=== PATIENT | female | born 1960 | race Caucasian/White ===

== ENCOUNTER 2018-03-02 04:39 | Inpatient (IN) ==
[2018-03-02] MEDS ORDERED: ONDANSETRON HCL/PF 2 MG/ML VIAL IV ONE (05:06)
[2018-03-02] MEDS ORDERED: BUTORPHANOL TARTRATE 2 MG/ML VIAL IV ONE (05:07)
[2018-03-02] MEDS ORDERED: BUTORPHANOL TARTRATE 2 MG/ML VIAL ONE (05:17)
[2018-03-02] MEDS ORDERED: ONDANSETRON HCL/PF 2 MG/ML VIAL ONE (05:17)
--- NOTE | 2018-03-02 05:17 | ERNOTE ---
Abdominal HPI - General Chief Complaint: Abdominal Pain Time Seen by Provider: 03/02/18 05:00 Source: patient Exam Limitations: no limitations - Immun/Allergies/Home Medications Immunizatons: IMMUNIZATION HX Immunizations Up to Date Yes History of Influenza Vaccine Yes Allergies/Adverse Reactions: Allergies No Known Allergies Allergy (Unverified 03/02/18 04:49) Home Medications: HOME MEDICATIONS NK [No Home Medication] 03/02/18 [Last Taken Unknown] - History of Present Illness Narrative: Pt states that she has had crampy abdominal pain that worsened this morning and is more LLQ but bilateral lower quads. Timing: getting worse Quality: moderate, cramping Modifying Factors - (Improves): Present: analgesics - helped only a little Associated Symptoms: Present: denies symptoms Review of Systems - Review of Systems Constitutional: Present: fever - does not have thermometer at home but felt warm , chills Respiratory: Absent: shortness of breath Cardiology: Absent: chest pain Gastrointestinal/Abdominal: Present: See HPI, nausea Genitourinary: Present: frequency, dysuria Musculoskeletal: Absent: back pain, muscle pain Skin: Absent: rash Endocrine: Present: excessive sweating - Patient's Past Medical History Patient History - Medical: No pertinent hx Patient History - Cardiac/Respiratory: No pertinent hx Patient History - Cancer: No Hx of Cancer Patient History - Surgical Procedures: , D & C Patient History - Other: None - Social History Living Situations: spouse Psych History: No pertinent hx Smoking Status: Never smoker Have you smoked in the past 12 months: No Do you dip or chew tobacco: No Alcohol Use: occasionally Drug Use: none - Immunizations Immunizations Up to Date: Yes History of Influenza Vaccine: Yes Physical Exam - Physical Exam General Appearance: Present: wd/wn, alert, mild distress Head Exam: Present: normal inspection, no evidence of injury Neck: Present: normal inspection, nontender, supple Respiratory: Present: no respiratory distress, normal breath sounds, lungs clear Cardiovascular/Chest: Present: regular rate, rhythm, no murmur, normal peripheral pulses Gastrointestinal/Abdominal: Present: normal bowel sounds, tenderness - LLQ. Absent: distended, guarding, rebound Back Exam: Present: normal inspection, normal range of motion, no CVA tenderness , no vertebral tenderness Extremity Exam: Present: normal inspection, normal range of motion, no edema Neurological Exam: Present: alert, oriented, normal mood/affect Skin Exam: Present: normal color, warm/dry Lymphatic Exam: Present: no adenopathy ED Progress - Results and Orders Patient's Lab Results:: I have reviewed the patient's lab results. Results and Orders: Laboratory Tests 03/02/18 03/02/18 03/02/18 05:15 05:15 06:10 WBC 14.8 H Hgb 12.3 L Hct 37.2 Plt Count 227 Neutrophils % 82.9 H Sodium 140 Potassium 3.9 Chloride 106 Carbon Dioxide 25.3 Anion Gap 12.6 BUN 11 Creatinine 0.91 Est GFR (Non-Af Amer) 67 Random Glucose 123 H Calcium 9.1 Total Bilirubin 0.9 AST 15 ALT 20 Alkaline Phosphatase 85 Total Protein 7.5 Albumin 3.6 Urine Color Yellow Urine Appearance Clear Urine pH 5.5 Ur Specific [place] >=1.030 Urine Protein Negative Urine Glucose (UA) Negative Urine Ketones 5 Urine Blood 250 H Urine Nitrate Negative Urine Bilirubin Negative Urine Urobilinogen Normal Ur Leukocyte Esterase Negative Urine RBC 5-10 H Urine WBC Trace H Ur Epithelial Cells None seen Urine Bacteria Trace Urine Culture Comments No culture indicated - Vital Signs Patient's Vital Signs:: I have reviewed the patient's vital signs. Vital Signs: Vital Signs 03/02/18 04:44 Temperature 36.8 C Pulse Rate 84 Respiratory 14 Rate Blood Pressure 143/54 O2 Sat by Pulse 100 Oximetry - CT/Ultrasound CT/Ultrasound Narrative: CT abd/ pelvis: IMPRESSION: 1. CT findings are most compatible with acute sigmoid diverticulitis or colitis. There is a tiny extraluminal gas within the sigmoid colonic mesentery which could represent contained microperforation. Underlying colonic mass cannot be entirely excluded and therefore consider further evaluation of the colon when the patient's acute symptoms have resolved. 2. Inflammatory stranding along the left side of the pelvis/ retroperitoneum. There is no definable pelvic or intra-abdominal fluid collection/abscess. 3. No evidence for intrarenal calcifications, or signs of obstructive uropathy. Additional comments and limitations are as above. Ordering provider Dr. Donovan was informed regarding the above results by telephone on 03/02/2018 7 :48 AM. Electronically signed by Veronica Coreas M.D.. - Progress/Reassessment Chief Complaint: Abdominal Pain Progress:: Improved Progress Note-Subjective: 03/02/18 08:[address] Hart she agrees with observation admit. Departure Clinical Impression: Diverticulitis large intestine Qualifiers: Diverticulitis bleeding: unspecified bleeding status Diverticulitis complication: with perforation Qualified Code(s): K57.20 - Diverticulitis of large intestine with perforation and abscess without bleeding - Departure Disposition: Still a patient Condition: Fair
[2018-03-02 05:28] LABS: Hematocrit 37.2 % (37.0-47.0); Hemoglobin 12.3 gm/dL (12.5-16.0); Mean Cell Volume 93.5 fl (78-100); Mean Corpuscular Hemoglobin 30.9 pg (27-31); Mean Corpuscular Hgb Conc 33.1 g/dl (32-36); Mean Platelet Volume 9.6 fl (6.0-9.5); Neutrophil # 12.3 K/mm3 (1.3-6.0); Neutrophil % 82.9 % (42-75.0); Platelet Count 227 K/mm3 (150-450); Red Blood Count 3.98 M/mm3 (4.2-5.4); Red Cell Distribution Width 11.8 % (11.5-14.0); White Blood Count 14.8 K/mm3 (4.0-10.5)
[2018-03-02 05:37] LABS: Albumin * 3.6 gm/dl (3.4-5.0); Anion Gap 12.6 mmol/L (6.8-13.8); BUN/Creatinine Ratio 12.1 (9.0-21.6); Bilirubin, Total 0.9 mg/dL (0.0-1.1); Ca. Corrected For Albumin 9.1 mg/dL (8.4-10.2); Calcium * 9.1 mg/dL (7.9-10.9); Carbon Dioxide 25.3 mmol/L (24-32.6); Potassium 3.9 mmol/L (3.4-4.6); Total Protein 7.5 gm/dL (6.2-8.2)
[2018-03-02 06:12] LABS: Urine Bilirubin Negative (NEGATIVE); Urine Blood 250 /ul (NEGATIVE); Urine Ketone 5 mg/dL (NEGATIVE); Urine Nitrite Negative (NEGATIVE); Urine Protein Negative (NEGATIVE); Urine Specific Gravity >=1.030 SP.GR. (1.005-1.010); Urine Urobilinogen Normal (NORMAL); Urine pH 5.5 pH (5.0-7.0)
[2018-03-02 06:20] LABS: Urine Appearance Clear (CLEAR); Urine Bacteria TRACE; Urine Color Yellow; Urine WBC TRACE /hpf (0-5)
[2018-03-02] MEDS: PIPERACILLIN SODIUM/TAZOBACTAM 3.375 GM in DEXTROSE 5 % IN WATER 100 ML IV SCH ×6 (09:02→23:47)
--- NOTE | 2018-03-02 09:06 | HP ---
Chief Complaint - Chief Complaint Date of Service: 03/02/18 Time of Service: 09:06 Chief Complaint: Abdominal pain since last night. History of Present Illness: Patient is a 57-year-old WF with H/O diverticulosis developed sudden onset of severe abdominal pain in the LLQ at approximately 10 PM on 02/03 05/22. The pain gradually worsened [ graded as 8/10] which prompted her to come to the ER Patient states she had an episode of nausea/vomiting 3 approximately 2 weeks ago but she felt it was a stomach flu. She had generalized abdominal discomfort with it. Labs in ER: WBC 14.8, lactic acid 1.4, sp. gr Urine 1.030. CT abdomen/pelvis W/O : Acute sigmoid diverticulitis/colitis w/ inflammatory stranding along the left side of the pelvis/retroperitoneum. No definable pelvic/intra-abdominal fluid collection/abscess. Tiny extraluminal gas within the sigmoid colon mesentery which could represent contained microperforation. Further evaluation of the colon should be done when the patient's acute symptoms have resolved to rule out mass. Patient was started on Zosyn[piperacillin and tazobactam], IV fluids and kept NPO. - Patient's Past Medical History Patient History - Medical: No pertinent hx Patient History - Cardiac/Respiratory: No pertinent hx Patient History - Cancer: No Hx of Cancer Patient History - Surgical Procedures: , D & C Patient History - Other: None - Family History Mother Family History - Medical: No pertinent hx Family History - Cardiac/Respiratory: Hypertension Family History - Cancer: Breast Father Family History - Cardiac/Respiratory: Hypertension Family History - Cancer: Other - Social History Living Situations: spouse Psych History: No pertinent hx Smoking Status: Never smoker Have you smoked in the past 12 months: No Do you dip or chew tobacco: No Alcohol Use: occasionally Drug Use: none - Immunizations Immunizations Up to Date: Yes History of Influenza Vaccine: Yes Review Of Systems (GEN) - Review of Systems Generalized/Overall Review: Absent: Weakness, Chills, Fever EENTM: Present: Other - denies allergies, sinus drainage Respiratory: Absent: Cough, Shortness of Breath Cardiac: Absent: Chest Pain, Edema, Palpitations Abdominal: Present: Nausea, Vomiting - "stomach flu" 2 weeks ago, Abdominal Pain - x 1day Genitourinary: Absent: Burning, Urgency Musculoskeletal: Absent: Joint Pain, Back Pain Neurological: Absent: Headache, Anxiety, Depressed Skin: Absent: Dryness Endocrine: Absent: Intolerance to Cold, Intolerance to Heat Immunizations: IMMUNIZATION HX Immunizations Up to Date Yes History of Influenza Vaccine Yes Allergies/Adverse Reactions: Allergies Allergy/AdvReac Type Severity Reaction Status Date / Time No Known Allergies Allergy Unverified 03/05/18 14:33 Home Medications: HOME MEDICATIONS Ciprofloxacin HCl 500 mg PO BID #20 tablet 03/06/18 [Last Taken Unknown] metroNIDAZOLE [Flagyl] 500 mg PO QID #40 tab 03/06/18 [Last Taken Unknown] Exam - Exam Vital Signs: Vital Signs - Last Taken Temp 36.6 C 03/02/18 08:00 Pulse 105 H 03/02/18 08:00 Resp 15 03/02/18 08:00 BP 124/66 03/02/18 08:00 Pulse Ox 97 03/02/18 08:00 Constitutional: Present: Alert, Oriented x3, Cooperative, Middle aged ENT Exam: Present: dry mucous membranes Eye Exam: bilateral eye: normal inspection, PERRL Neck: Present: normal inspection, trachea midline Respiratory: Present: normal breath sounds, no accessory muscle use Cardiovascular/Chest: Present: regular rate, rhythm. Absent: tachycardia Peripheral Pulses: carotid (R): 2+, carotid (L): 2+ Abdomen: Present: Normal bowel sounds, soft, hypoactive - mild LLQ tenderness Extremity: Present: normal range of motion, non-tender, normal inspection, no pedal edema Skin Exam: Present: warm/dry, pallor Appearance: Present: appropriate appearance, appropriate insight Eye contact: Present: good eye contact, normal speech Diagnostic Studies: Laboratory Tests 03/02/18 05:15 WBC 14.8 H Hgb 12.3 L Hct 37.2 Plt Count 227 Neutrophils % 82.9 H Lymphocytes % 9.2 L 03/02/18 05:15 Plasma Sodium 140 Potassium 3.9 Chloride 106 Carbon Dioxide 25.3 BUN 11 Creatinine 0.91 Est GFR (Non-Af Amer) 67 Random Glucose 123 H Calcium Adj for Albumin 9.1 Total Bilirubin 0.9 AST 15 Total Protein 7.5 Albumin 3.6 03/02/18 05:15 Lactic Acid, Venous 1.4 Assessment/Plan - Narrative Narrative: 1. DIVERTICULITIS WITH CONTAINED MICROPERFORATION: Start patient on piperacillin/tazobactam 3.375 mg IV every 8 hours. Keep patient NPO. Ondansetron 4 mg IV as needed for nausea. Morphine sulfate 2-4 mg IV as needed for pain. Repeat CT of the abdomen in 3-5 days follow up. Discussed with patient regarding TPN if NPO longer 7-10 days. IV fluids in the form of D5NS at 150 mL an hour. Repeat CBC and CMP on 03/03/18. Dr. Reed on consult. Due to the above the patient will require at least TWO day- midnight stay. 2. DVT PROPHYLAXIS: Patient is ambulatory. Has SCDs on. Discuss with Dr. Reed regarding Lovenox. 3. CODE STATUS: Full code. - Assessment/Plan (1) diverticulitis with microperforation Problem: Acute
[2018-03-02] MEDS: DEXTROSE 5%-NORMAL SALINE 1,000 ML IV PRN ×3 (09:07→23:44)
[2018-03-02] MEDS ORDERED: ENOXAPARIN SODIUM 40 MG/0.4 ML SYRG SC SCH (09:30)
[2018-03-02] MEDS: SACCHAROMYCES BOULARDII 250 MG CAPSULE PO SCH ×2 (11:08→21:53)
[2018-03-02] MEDS ORDERED: MORPHINE SULFATE 4 MG/ML SYRG IV PRN (11:40)
[2018-03-02] MEDS: MORPHINE SULFATE 2 MG/ML DISP.SYRIN IV PRN (12:03)
[2018-03-02] MEDS: ONDANSETRON HCL/PF 2 MG/ML VIAL IV PRN (12:04)
--- NOTE | 2018-03-02 15:35 | CONS ---
[facility] - General Date of Service: 03/02/18 Source: patient, RN/MD, old records Exam Limitations: no limitations - History of Present Illness Initial Comments: Yesterday afternoon she felt tired and anorectic. Then between 10 PM and midnight she developed the sudden onset of severe left lower quadrant abdominal pain. It hurt to move. She had some difficulty with her "usual bowels" in that it was less in amount and smaller. The pain continued and she presented to the emergency room for evaluation. She was found to have left lower quadrant tenderness, elevated WBC, and CT scan evidence of sigmoid diverticulitis with possible localized perforation and stranding. She has been started on IV Zosyn and has received pain medication. She states she feels much better and her pain is down to a 2/10 and she can move much more easily. She is not hungry but she is thirsty. She generally moves her bowels a little bit every day after Tea in the morning. They are fairly soft In retrospect, 2 weeks ago she had an episode where she felt very tired and weak and somewhat chilled. She thought she had the stomach flu and vomited at least 3 times. She had some generalized abdominal pain she was not sure if this was from vomiting or not. She was not febrile and the episode lasted for 1 day. She has never had anything else like this before. Timing/Duration: other - Began yesterday afternoon, got worse last night Modifying Factors - (Worsens): Reports: movement Modifying Factors - (Improves): Reports: immobilization, medication Associated Symptoms: loss of appetite, nausea, vomiting - Abdominal pain, feeling chilled, other Allergies/Adverse Reactions: Allergies No Known Allergies Allergy (Unverified 03/02/18 09:21) Home Medications: Home Medications Medication Instructions Recorded Last Taken NK [No Home Medication] 03/02/18 Unknown - Patient's Past Medical History Patient History - Medical: No pertinent hx Patient History - Cardiac/Respiratory: No pertinent hx Patient History - Cancer: No Hx of Cancer Patient History - Surgical Procedures: , D & C, Other - Colonoscopy with removal of small hyperplastic polyp. Sigmoid diverticulosis was noted Patient History - Other: None LMP (females 10-50): Menopausal - Family History Mother Family History - Medical: No pertinent hx Family History - Cardiac/Respiratory: Hypertension Family History - Cancer: Breast Father Family History - Cardiac/Respiratory: Hypertension Family History - Cancer: Other - Social History Living Situations: spouse Abuse History: No History of abuse Psych History: No pertinent hx Smoking Status: Never smoker Have you smoked in the past 12 months: No Do you dip or chew tobacco: No Patient requests Smoking Cessation Consult: No Initiate information on Smoking Cessation: No Alcohol Use: occasionally Drug Use: none - Immunizations Immunizations Up to Date: Yes History of Influenza Vaccine: Yes Procedures ENDOSC POLYPECTOMY OF LG INTEST (04/29/11) Medications - Medications Current Medications: Current Medications Enoxaparin Sodium (Lovenox) 40 mg SC Q24H CARINA Stop: 04/01/18 09:31 Last Admin: 03/02/18 10:29 Dose: Not Given Dextrose/Sodium Chloride (Dextrose 5%-0.9% Ns) 1,000 mls @ 150 mls/hr IV .Q6H40M PRN PRN Reason: HYDRATION Stop: 04/01/18 08:25 Last Admin: 03/02/18 09:07 Dose: 125 mls/hr Piperacillin Sod/Tazobactam (Sod 3.375 gm/ Dextrose/Water) 100 mls @ 200 mls/ hr IV Q8H CARINA PRN Reason: Protocol Stop: 04/01/18 08:31 Last Infusion: 03/02/18 09:32 Dose: Infused Morphine Sulfate (Morphine Sulfate) 2 mg IV Q4H PRN PRN Reason: Moderate Pain (pain scale 4-6) Stop: 04/01/18 11:40 Last Admin: 03/02/18 12:03 Dose: 2 mg Ondansetron HCl (Zofran) 4 mg IV Q6H PRN PRN Reason: Nausea And Vomiting Stop: 04/01/18 11:39 Last Admin: 03/02/18 12:04 Dose: 4 mg Saccharomyces Boulardii (Florastor) 250 mg PO BID CARINA Stop: 04/01/18 09:01 Last Admin: 03/02/18 11:08 Dose: 250 mg Review of Systems - Review of Systems Generalized/Overall Review: Present: Fatigue. Absent: Chills, Fever EENTM: Present: No Symptoms Reported Respiratory: Present: No Symptoms Reported Cardiac: Present: No Symptoms Reported Abdominal: Present: Other - Left lower quadrant pain and tenderness. Markedly improved since last night Musculoskeletal: Present: No Symptoms Reported Neurological: Present: No Symptoms Reported Skin: Present: No Symptoms Reported Misc: All systems neg except as marked Physical Examination - Exam Vital Signs: Vital Signs - Last Taken Temp 36.8 C 03/02/18 09:10 Pulse 87 03/02/18 09:10 Resp 16 03/02/18 09:10 BP 108/57 03/02/18 09:10 Pulse Ox 97 03/02/18 09:10 Constitutional: Present: Alert, Oriented x3, Cooperative, Mild distress ENT Exam: Present: normal ENT inspection Eye Exam: bilateral eye: normal inspection Neck: Present: full range of motion, normal inspection Breasts: Present: Exam deferred Respiratory: Present: no respiratory distress Cardiovascular/Chest: Present: regular rate, rhythm Abdomen: Present: other - She has point direct tenderness in the left lower quadrant and some additional report of tenderness across the lower abdomen as well. She can cough without discomfort. /Rectal: Present: Exam deferred Extremity: Present: normal inspection Skin Exam: Present: normal color Neurologic: Present: director of dance II-XII nml as tested, no motor/sensory deficits Appearance: Present: appropriate appearance, appropriate insight, neat Eye contact: Present: cooperative, good eye contact, normal speech Thoughts: Present: normal thought pattern - Results and Findings: Lab/Microbiology results last 24 hrs: CT scan shows thickening in the sigmoid colon with adjacent stranding and possible microperforation. White blood cell count is elevated at 14,000 Urine is concentrated but clear - Assessments/Findings (1) Diverticulitis large intestine Diagnosis(s): The CT scan shows thickening and stranding adjacent to the sigmoid colon with a possible small microperforation. There is no katia abscess or free air. RECOMMEND: Continued n.p.o. status with exception of ice chips. IV antibiotic which has already been begun. Serial exams with repeat CBC tomorrow morning. Would recommend continuing n.p.o. status until she is pain-free. If she tolerates an advanced diet she can been transitioned to p.o. antibiotics to cover both aerobes and anaerobes which should be then continued for at least a total of 14 days. A pamphlet on diverticular disease was reviewed with the patient and given to her, the case has been discussed with Dr. Hart, and I will continue to follow the patient Problem: Acute Qualifiers: Diverticulitis bleeding: unspecified bleeding status Diverticulitis complication: with perforation Qualified Code(s): K57.20 - Diverticulitis of large intestine with perforation and abscess without bleeding
[2018-03-03] MEDS: PIPERACILLIN SODIUM/TAZOBACTAM 3.375 GM in DEXTROSE 5 % IN WATER 100 ML IV SCH ×6 (00:05→16:43)
[2018-03-03] MEDS: MORPHINE SULFATE 2 MG/ML DISP.SYRIN IV PRN (02:15)
[2018-03-03 05:34] LABS: Hematocrit 29.8 % (37.0-47.0); Hemoglobin 9.7 gm/dL (12.5-16.0); Mean Cell Volume 96.1 fl (78-100); Mean Corpuscular Hemoglobin 31.3 pg (27-31); Mean Corpuscular Hgb Conc 32.6 g/dl (32-36); Mean Platelet Volume 9.9 fl (6.0-9.5); Neutrophil % 71.9 % (42-75.0); Platelet Count 168 K/mm3 (150-450); Red Cell Distribution Width 12.1 % (11.5-14.0); White Blood Count 8.4 K/mm3 (4.0-10.5)
--- NOTE | 2018-03-03 05:34 | PN ---
Subjective - Date and Time Seen Date: 03/03/18 Time: 06:14 Subjective Narrative: Pt seen this am. States abdominal pain is improved from yesterday, but dull aching pain persist on lower abdomen. No n/v. No other acute events overnight. Objective - Vitals Vitals: Last Vital Signs Temp 37.4 C 03/03/18 02:00 Pulse 80 03/03/18 02:00 Resp 16 03/03/18 02:00 BP 105/55 03/03/18 02:00 Pulse Ox 93 03/03/18 02:00 - Exam Constitutional: Present: Alert, Oriented x3, Cooperative, No distress ENT Exam: Present: normal ENT inspection Neck: Present: non-tender, full range of motion, supple Breasts: Present: Exam deferred Respiratory: Present: chest non-tender, lungs clear, normal breath sounds Cardiovascular/Chest: Present: normal peripheral pulses, regular rate, rhythm, no chest tenderness, no edema Abdomen: Present: Normal bowel sounds, soft, tender, guarding - lower abdomen /Rectal: Present: Exam deferred Extremity: Present: normal range of motion, non-tender, normal inspection, no pedal edema Skin Exam: Present: warm/dry, no cyanosis Lymphatic: Present: no adenopathy Neurologic: Present: alert, normal mood/affect, oriented x 3 Appearance: Present: appropriate appearance, appropriate insight Eye contact: Present: cooperative, good eye contact, normal speech Thoughts: Present: normal thought pattern, no apparent hallucination Assessment/Plan - Problems/Diagnosis (1) diverticulitis with microperforation Problem: Acute Narrative: Pt started on piperacillin/tazobactam 3.375 mg IV every 8 hours. Provide supportive cares with: antiemetics, analgesics, Keep patient NPO and continue with IVF hydration until pt can tolerate diet/clear liquids. May show an improvement after 2-3 days and if no improvment, prompt imaging will be needed to look for complications such as abscess or perforation that may require further interventions. CBC & CMP labs in am. Surgery consulted and following. Will need 10-14 days of Antibitoics targeting aerobes gram -ve and anaerobes. Will need colonoscopy 6-8 weeks after symptoms resolve to rule out malignancy
[2018-03-03] MEDS: DEXTROSE 5%-NORMAL SALINE 1,000 ML IV PRN ×3 (06:38→20:40)
[2018-03-03] MEDS: SACCHAROMYCES BOULARDII 250 MG CAPSULE PO SCH ×2 (09:24→20:13)
[2018-03-03] MEDS ORDERED: MORPHINE SULFATE 4 MG/ML SYRG IV PRN (10:00)
[2018-03-03] MEDS: ONDANSETRON HCL/PF 2 MG/ML VIAL IV PRN (21:28)
[2018-03-04] MEDS: PIPERACILLIN SODIUM/TAZOBACTAM 3.375 GM in DEXTROSE 5 % IN WATER 100 ML IV SCH ×6 (00:30→17:29)
[2018-03-04] MEDS: DEXTROSE 5%-NORMAL SALINE 1,000 ML IV PRN ×3 (03:01→17:29)
[2018-03-04] MEDS: ONDANSETRON HCL/PF 2 MG/ML VIAL IV PRN (03:58)
[2018-03-04] MEDS: ACETAMINOPHEN 325 MG TABLET PO PRN ×3 (04:16→20:54)
--- NOTE | 2018-03-04 05:23 | PN ---
Subjective - Date and Time Seen Date: 03/04/18 Time: 05:22 Subjective Narrative: Pt seen this am. Abdominal pain feels much better today. Had headache overnight relieved by apap. No other acute events overnight. Objective - Vitals Vitals: Last Vital Signs Temp 36.6 C 03/04/18 03:05 Pulse 75 03/04/18 03:05 Resp 18 03/04/18 03:05 BP 117/63 03/04/18 03:05 Pulse Ox 95 03/04/18 03:05 - Abnormal Lab Findings Abnormal Lab Findings: Abnormal Lab Results 03/03/18 Range/Units 05:31 RBC 3.10 L (4.2-5.4) M/mm3 Hgb 9.7 L (12.5-16.0) gm/dL Hct 29.8 L (37.0-47.0) % MCH 31.3 H (27-31) pg MPV 9.9 H (6.0-9.5) fl Immature Gran % (Auto) 0.50 H (0.001-0.429) % Immature Gran # (Auto) 0.04 H (0.000-0.0310) K/mm3 Lymphocytes % 19.6 L (20-51) % - Exam Constitutional: Present: Alert, Oriented x3, Cooperative, No distress ENT Exam: Present: normal ENT inspection, hearing grossly normal Neck: Present: non-tender, full range of motion, supple Breasts: Present: Exam deferred Respiratory: Present: No rales, No wheezing Cardiovascular/Chest: Present: normal peripheral pulses, regular rate, rhythm, no chest tenderness Abdomen: Present: Normal bowel sounds, soft, nontender. Absent: guarding /Rectal: Present: Exam deferred Extremity: Present: no pedal edema Skin Exam: Present: warm/dry, no cyanosis Lymphatic: Present: no adenopathy Neurologic: Present: no motor/sensory deficits, alert, normal mood/affect Appearance: Present: appropriate appearance, appropriate insight Eye contact: Present: cooperative, good eye contact, normal speech Thoughts: Present: normal thought pattern, no apparent hallucination Assessment/Plan - Problems/Diagnosis (1) diverticulitis with microperforation Problem: Acute Narrative: Pt started on piperacillin/tazobactam 3.375 mg IV every 8 hours. Provide supportive cares with: antiemetics, analgesics, Keep patient NPO and continue with IVF hydration until pt can tolerate diet/clear liquids. May show an improvement after 2-3 days and if no improvment, prompt imaging will be needed to look for complications such as abscess or perforation that may require further interventions. CBC & CMP labs in am. Surgery consulted and following. Will need 10-14 days of Antibitoics targeting aerobes gram -ve and anaerobes. Will need colonoscopy 6-8 weeks after symptoms resolve to rule out malignancy
[2018-03-04 05:43] LABS: Hematocrit 30.1 % (37.0-47.0); Hemoglobin 9.8 gm/dL (12.5-16.0); Mean Cell Volume 95.6 fl (78-100); Mean Corpuscular Hemoglobin 31.1 pg (27-31); Mean Corpuscular Hgb Conc 32.6 g/dl (32-36); Mean Platelet Volume 10.1 fl (6.0-9.5); Neutrophil # 4.3 K/mm3 (1.3-6.0); Neutrophil % 74.4 % (42-75.0); Platelet Count 175 K/mm3 (150-450); Red Blood Count 3.15 M/mm3 (4.2-5.4); Red Cell Distribution Width 11.9 % (11.5-14.0); White Blood Count 5.7 K/mm3 (4.0-10.5)
[2018-03-04 05:51] LABS: Albumin * 2.6 gm/dl (3.4-5.0); Anion Gap 11.7 mmol/L (6.8-13.8); BUN/Creatinine Ratio 3.6 (9.0-21.6); Bilirubin, Total 0.6 mg/dL (0.0-1.1); Ca. Corrected For Albumin 9.3 mg/dL (8.4-10.2); Calcium * 8.5 mg/dL (7.9-10.9); Carbon Dioxide 24.9 mmol/L (24-32.6); Potassium 3.6 mmol/L (3.4-4.6); Total Protein 6.3 gm/dL (6.2-8.2)
--- NOTE | 2018-03-04 08:06 | PN ---
Dictated Progress Note - Date and Time Seen: Date: 03/04/18 Time: 08:04 - Progress Note Narrative: Vital Signs - Last Taken Temp 36.6 C 03/04/18 07:00 Pulse 72 03/04/18 07:00 Resp 16 03/04/18 07:00 BP 111/66 03/04/18 07:00 Pulse Ox 95 03/04/18 03:05 Abnormal/Pending Laboratory Last 24 HRS 03/04/18 03/04/18 05:33 05:33 RBC 3.15 L Hgb 9.8 L Hct 30.1 L MCH 31.1 H MPV 10.1 H Lymphocytes % 15.7 L Lymphocytes # 0.90 L Sodium 143 H Plasma Sodium 143 H Chloride 110 H BUN/Creatinine Ratio 3.6 L Random Glucose 127 H Albumin 2.6 L Culture 03/02/18 09:27 Blood Culture - Preliminary Blood NO GROWTH 24 HOURS She continues to feel better, but still with LLQ tenderness. Passing gas. She had headache last night--now 2/10 with Tylenol. WBC decreased. Na increased. Not hungry. Will start clear liquids
[2018-03-04] MEDS: SACCHAROMYCES BOULARDII 250 MG CAPSULE PO SCH ×2 (09:01→20:54)
[2018-03-05] MEDS: DEXTROSE 5%-NORMAL SALINE 1,000 ML IV PRN ×3 (00:13→13:57)
[2018-03-05] MEDS: PIPERACILLIN SODIUM/TAZOBACTAM 3.375 GM in DEXTROSE 5 % IN WATER 100 ML IV SCH ×8 (00:35→23:44)
--- NOTE | 2018-03-05 05:07 | PN ---
Subjective - Date and Time Seen Date: 03/05/18 Time: 05:01 Subjective Narrative: Pt seen this am. Says abdominal pain has significantly improved. Is tolerating clear liquid. No other acute events overnight. Objective - Vitals Vitals: Last Vital Signs Temp 36.7 C 03/04/18 23:00 Pulse 76 03/04/18 23:00 Resp 18 03/04/18 23:00 BP 128/74 03/04/18 23:00 Pulse Ox 92 03/04/18 23:00 - Abnormal Lab Findings Abnormal Lab Findings: Abnormal Lab Results 03/04/18 03/04/18 Range/Units 05:33 05:33 RBC 3.15 L (4.2-5.4) M/mm3 Hgb 9.8 L (12.5-16.0) gm/dL Hct 30.1 L (37.0-47.0) % MCH 31.1 H (27-31) pg MPV 10.1 H (6.0-9.5) fl Lymphocytes % 15.7 L (20-51) % Lymphocytes # 0.90 L (1.5-3.5) k/mm3 Sodium 143 H (132-142) mmol/L Plasma Sodium 143 H (130-142) mmol/L Chloride 110 H (97-106) mmol/L BUN/Creatinine Ratio 3.6 L (9.0-21.6) Random Glucose 127 H (70-110) mg/dL Albumin 2.6 L (3.4-5.0) gm/dl - Exam Constitutional: Present: Alert, Oriented x3, Cooperative, No distress ENT Exam: Present: normal ENT inspection, hearing grossly normal Neck: Present: non-tender, full range of motion, supple Respiratory: Present: chest non-tender, No rales, No wheezing Cardiovascular/Chest: Present: normal peripheral pulses, regular rate, rhythm, no chest tenderness, no edema Abdomen: Present: Normal bowel sounds, soft, nontender /Rectal: Present: Exam deferred Extremity: Present: normal range of motion, non-tender, normal inspection Skin Exam: Present: warm/dry, no cyanosis Lymphatic: Present: no adenopathy Neurologic: Present: alert, normal mood/affect, oriented x 3 Appearance: Present: appropriate appearance, appropriate insight Eye contact: Present: cooperative, good eye contact, normal speech Thoughts: Present: normal thought pattern, no apparent hallucination Assessment/Plan - Problems/Diagnosis (1) diverticulitis with microperforation Problem: Acute Narrative: Pt started on piperacillin/tazobactam 3.375 mg IV every 8 hours. Provide supportive cares with: antiemetics, analgesics, Keep patient NPO and continue with IVF hydration until pt can tolerate diet/clear liquids. May show an improvement after 2-3 days and if no improvment, prompt imaging will be needed to look for complications such as abscess or perforation that may require further interventions. CBC & CMP labs in am. Surgery consulted and following. Will need 10-14 days of Antibitoics targeting aerobes gram -ve and anaerobes. Will need colonoscopy 6-8 weeks after symptoms resolve to rule out malignancy. 03/04/18- Advanced to clear liquid diet.
[2018-03-05 05:51] LABS: Hematocrit 30.6 % (37.0-47.0); Hemoglobin 9.9 gm/dL (12.5-16.0); Mean Cell Volume 95.3 fl (78-100); Mean Corpuscular Hemoglobin 30.8 pg (27-31); Mean Corpuscular Hgb Conc 32.4 g/dl (32-36); Neutrophil # 1.9 K/mm3 (1.3-6.0); Neutrophil % 48.3 % (42-75.0); Platelet Count 194 K/mm3 (150-450); Red Blood Count 3.21 M/mm3 (4.2-5.4); Red Cell Distribution Width 11.7 % (11.5-14.0); White Blood Count 3.9 K/mm3 (4.0-10.5)
[2018-03-05 05:52] LABS: Anion Gap 12.1 mmol/L (6.8-13.8); BUN/Creatinine Ratio 2.4 (9.0-21.6); Calcium * 8.6 mg/dL (7.9-10.9); Carbon Dioxide 23.3 mmol/L (24-32.6); Estimated Creat Clear 68.3; Potassium 3.4 mmol/L (3.4-4.6)
[2018-03-05] MEDS: SACCHAROMYCES BOULARDII 250 MG CAPSULE PO SCH ×2 (08:08→20:06)
[2018-03-06] MEDS: ACETAMINOPHEN 325 MG TABLET PO PRN ×2 (02:09→08:39)
--- NOTE | 2018-03-06 05:01 | DS ---
(1) diverticulitis with microperforation Problem: Acute Description of Stay: Admission date: 03/02/18 Discharge date: 03/06/18 Hospital Course Description. Pt is a 57-year-old WF with no significant PMH who developed sudden onset of severe abdominal pain in the LLQ at approximately 10 PM on 03/01/18. The pain gradually worsened which prompted her to come to the ER. Pt stated she had an episode of nausea/vomiting 3 approximately 2 weeks priot to DOA but she thought it was a stomach flu. On admission, Labs in ER: WBC 14.8, lactic acid 1.4, sp. gr Urine 1.030. An abdominal CT obtained showed: Acute sigmoid diverticulitis/colitis w/ inflammatory stranding along the left side of the pelvis/retroperitoneum, with No definable pelvic/intra-abdominal fluid collection/abscess & tiny extraluminal gas within the sigmoid colon mesentery which could represent contained microperforation. She was admitted inpatient, had bowel rest by NPO, received IVF hydration and administered Zozyn 3.375 gram q 8 hours. She was followed by surgery. She made symptomatic improvement by the 2 day of IV antibiotics noted with less abdominal pain. Her WBC trended down to NR. She was free of fevers during the stay. Her diet was advanced to clear liquid and eventually regular, and she was able to tolerate without any nausea, vomiting or abdominal pain. Additional imaging deemed not necessary as she had no peritoneal signs and appeared clinically better overall. She was determined to be in a stable condition to be discharge home on another 10 days of Antibiotics targeting aerobes gram -ve and anaerobes. Therefore she was discharged on Cipro 500 mg po q 12 and Flagyl 500 mg QID. Will need colonoscopy in 6-8 weeks to rule out malignancy. She was provided educational materials on Diverticulitis and she will follow-up with her PCP next week. Procedures Performed: none Discharge Location: Home Disposition: Home self-care Condition: Good Discharge Activity: Activity as tolerated Discharge Diet: High Fiber Referrals: Maday Sinclair DO [Primary Care Provider] - Problem Oriented Discharge Instructions to Patient/Family: Diverticulitis, Easy -to-Read Additional Patient Instructions (free text): Please follow-up with your PCP. You will also need colonoscopy in 6-8 weeks. Staff may arrange the visit for you. Prescriptions (Any new or edited meds): Ciprofloxacin HCl 500 mg PO BID #20 tablet metroNIDAZOLE [Flagyl] 500 mg PO QID #40 tab Complete Home Medications List: Complete Home Medication List: Ciprofloxacin HCl 500 mg PO BID #20 tablet 03/06/18 metroNIDAZOLE [Flagyl] 500 mg PO QID #40 tab 03/06/18
[2018-03-06] MEDS: PIPERACILLIN SODIUM/TAZOBACTAM 3.375 GM in DEXTROSE 5 % IN WATER 100 ML IV SCH ×2 (08:33)
[2018-03-06] MEDS: SACCHAROMYCES BOULARDII 250 MG CAPSULE PO SCH (08:33)
--- NOTE | 2018-03-06 10:20 | PN ---
Dictated Progress Note - Date and Time Seen: Date: 03/06/18 Time: 10:17 - Progress Note Narrative: Vital Signs - Last Taken Temp 36.2 C L 03/06/18 07:16 Pulse 62 03/06/18 07:16 Resp 16 03/06/18 07:16 BP 129/82 03/06/18 07:16 Pulse Ox 98 03/06/18 07:16 Continues to feel better and has tolerated advanced diet Discussed need to maintain low fiber diet for now (then Benefiber and higher fiber ongoing) per Dietitian Will need additional 10 days of Cipro 500mg po BID and Flagyl 500mg po TID with f/u with PCP She is to call for questions or concerns, and immediately if worsening of discomfort
[2018-03-06 12:55] VITALS: BP 119/68
== END 2018-03-06 13:10 | disposition home or self-care (01) | DRG 392 ==
LOC: ER 04:39 → MS 08:14 → OBSVTOIN 09:09
PROVIDERS: ADMIT Internal Medicine; ATTEND Internal Medicine
DX: K57.20 Diverticulitis of large intestine with perforation and abscess without bleeding
CPT/HCPCS: 36415; 74019; 74020; 74176; 80048; 80053; 81001; 83605; 85025; 86140; 87040; 96365; 96375; 99284; J2405